=== PATIENT | female | born 1985 | race Caucasian/White ===

== ENCOUNTER 2021-09-28 21:41 | Emergency (ER) | payer SELFPAY ==
[~2021-09-28] VITALS: Ht 165.1 cm; Wt 180.9 kg
[2021-09-28] MEDS ORDERED: IPRATRPIUM/ALBUTEROL 0.5/2.5MG 3 ML NEBU. NEB ONE ×2 (22:45)
[2021-09-28] MEDS ORDERED: predniSONE 20 MG TABLET PO ONE (22:45)
--- NOTE | 2021-09-28 22:46 | PHYS DOC ---
Past History Past Surgical History: Additional Past Surgical Histo: 2006 General Adult EDM: Chief Complaint: COUGH HPI: HPI: Patient is a 36-year-old female coming in for persistent cough for 1 week. Patient's past 2 days she has had a sore throat and hoarse voice. Denies any fevers. States nothing is coming up when she coughs. Has taken numerous idyy-oml-[id number] and home remedies without improvement. Patient is a smoker. States she has a history of childhood asthma but does not use inhalers or nebulizers since childhood. Review of Systems: Review of Systems: All other systems within normal limits except for as noted in the HPI Allergies: Allergies: Allergies Coded Allergies Type Severity Reaction Last Updated Verified Sulfa (Sulfonamide Antibiotics) Allergy Mild hives 09/28/21 Yes Physical Exam: PE: Constitutional: Well developed, well nourished, no acute distress, non-toxic appearance. [] HENT: Normocephalic, atraumatic, bilateral external ears normal, nose normal. [] Eyes: PERRLA, conjunctiva normal, no discharge. [] Neck: No rigidity, supple, no stridor. [] Cardiovascular: Regular rate and rhythm, brisk cap refill [] Lungs & Thorax: Non labored symmetric respirations, no tachypnea or respiratory distress. Bilateral expiratory wheezes [] Abdomen: Soft, nondistended. Skin: Warm, dry, no erythema, no rash. [] Back: Unremarkable Extremities: No deformities, range of motion grossly intact, no lower extremity edema [] Neurologic: Alert and oriented X 3, no focal deficits noted. [] Psychologic: Affect normal, judgement normal, mood normal. [] Current Patient Data: Vital Signs: Vital Signs Date Time Temp Pulse Resp B/P (MAP) Pulse Ox O2 Delivery O2 Flow Rate FiO2 09/28/21 22:13 98.6 89 20 93 Room Air EKG: EKG: [] Radiology/Procedures: Radiology/Procedures: [][address] [address] IMAGING REPORT Signed PATIENT: EDUARDO HELLER ACCOUNT: [id number] : 1985 LOCATION: ER AGE: 36 SEX: F EXAM STATUS: REG ER ORD. PHYSICIAN: SULEIMAN ARREGUIN MD REASON: cough, congestion PROCEDURE: CHEST PA & LATERAL XR CHEST 2V Technique: PA and lateral views of the chest were obtained. Clinical History: Reason: cough, congestion / Spl. Instructions: / History: Comparison: None. Findings: The heart and pulmonary vasculature appear within normal limits. There is linear opacities in the lung bases. The pleural margins are clear. Impression: Basilar infiltrates could be disc atelectasis or early pneumonia. Electronically signed by: Domitila Wing III, MD (09/28/2021 11:02 PM) [facility] DICTATED AND SIGNED BY: DOMITILA WING III, MD DATE: 09/28/212300 CC: SULEIMAN ARREGUIN MD; PCP,NO ~ Heart Score: C/O Chest Pain: No Risk Factors: Risk Factors: DM, Current or recent (<one month) smoker, HTN, HLP, family history of CAD, obesity. Risk Scores: Score 0 - 3: 2.5% MACE over next 6 weeks - Discharge Home Score 4 - 6: 20.3% MACE over next 6 weeks - Admit for Clinical Observation Score 7 - 10: 72.7% MACE over next 6 weeks - Early Invasive Strategies Course & Med Decision Making: Course & Med Decision Making Pertinent Labs and Imaging studies reviewed. (See chart for details) [] Dragon Disclaimer: Dragon Disclaimer: This electronic medical record was generated, in whole or in part, using a voice recognition dictation system. Departure Departure: Impression: Primary Impression: Pneumonia Disposition: HOME / SELF CARE / HOMELESS Condition: STABLE Referrals: PCP,NO (PCP) Patient Instructions: Pneumonia, Adult Scripts Albuterol Sulfate (PROAIR HFA INHALER) 8.5 Gm Hfa.aer.ad 2 PUFF IH PRN Q4-6HRS PRN for wheezing for 21 Days, #1 INHALER 0 Refills Prov: SULEIMAN ARREGUIN MD 09/28/21 Prednisone (PREDNISONE) 50 Mg Tablet 1 TAB PO DAILY for steroid for 4 Days, #4 TAB You received this medication in the emergency room today. You will starting your next dose tomorrow. Prov: SULEIMAN ARREGUIN MD 09/28/21 Amoxicillin/Potassium Clav (AUGMENTIN 875-125 TABLET) 1 Each Tablet 1 TAB PO BID for antibiotic for 7 Days, #14 TAB 0 Refills Prov: SULEIMAN ARREGUIN MD 09/28/21 SULEIMAN ARREGUIN MD September 28, 2021 22:46
--- NOTE | 2021-09-28 23:05 | RAD ---
XR CHEST 2V Technique: PA and lateral views of the chest were obtained. Clinical History: Reason: cough, congestion / Spl. Instructions: / History: Comparison: None. Findings: The heart and pulmonary vasculature appear within normal limits. There is linear opacities in the kamaljit ng bases. The pleural margins are clear. Impression: Basilar infiltrates could be disc atelectasis or early pneumonia. Electronically signed by: Chaz Wing III, MD (09/28/2021 11:02 PM) [facility]
[2021-09-28] MEDS ORDERED: AMOX1TAB61 PO (23:16)
[2021-09-28] MEDS ORDERED: PRED50TA PO (23:16)
[2021-09-28] MEDS ORDERED: ALBU2.5V8 IH (23:16)
[2021-09-28 23:30] VITALS: BP 198/86
== END 2021-09-28 23:35 | disposition home or self-care (01) ==
LOC: ER 21:41
DX: J18.9 Pneumonia, unspecified organism (principal)
CPT/HCPCS: 71046; 94640; 99284; J7512